=== PATIENT | female | born 1970 | race Caucasian/White ===

== ENCOUNTER 2021-03-14 16:23 | Emergency (ER) | payer BC, SELFPAY ==
[2021-03-14 16:40] VITALS: BP 115/78; PULSE 80; RESP 16; TEMP 36.5; O2SAT 97
--- NOTE | 2021-03-14 17:01 | ED.EAR ---
HPI - Ear Problem General Chief complaint: Ear Stated complaint: Lt ear pain Source: patient and RN notes reviewed Limitations: no limitations History of Present Illness HPI Narrative: The obese patient, a smoker/occasional drinker, presents with left earache. Patient states she has 1 day history of left ear discomfort before departure for vacation. No fever, URI, decreased hearing acuity, tinnitus, TMJ pain, neuralgia type pain, bruxism/teeth grinding, tooth ache [she has had her wisdom teeth pulled]. Symptoms are mild, slightly tender below the tip of the mastoid. Discussed possible causes [dental, infectious, environmental/acquired] and will treat broadly; advised to follow-up with PMD and the ENT. Related Data Home Medications Medication Instructions Recorded Confirmed phentermine 15 mg PO DAILY 03/14/21 03/14/21 sertraline 50 mg PO DAILY 03/14/21 03/14/21 Allergies Allergy/AdvReac Type Severity Reaction Status Date / Time No Known Allergies Allergy Mild Verified 03/14/21 16:59 Review of Systems Review of Systems: General/Constitutional: No weight loss,fever Eyes: N0: Redness,discharge Ears/Nose/Throat: No: Epistaxis,ear discharge Respiratory: Denies: Hemoptysis Gastrointestinal: No Vomiting, Bleeding-rectal Skin: No Lumps, eruption Neurologic: No Focal Weakness,Sz Hematologic: Denies: Petechiae/Purpura Psychiatric: No: Suicida ideationl All Other Systems: Reviewed and Negative PMFSH Social History Social History Alcohol intake: current Comments At time of signature, agree with nursing past medical, surgical, social and family history. There is no relevant family history pertinent to the presenting complaint Exam Narrative: General Appearance: Well appearing, Well nourished, No distress EYE: PERRLA , EOMI Ears: Bilateral TMs and external ear normal, Auditory canals normal Nose: Normal nose, Nares clear Mouth/Throat: Normal appearing, Normal lips Neck: Supple, No adenopathy Respiratory: Airway patent, No respiratory distress Skin: Warm, Dry Neurological: A&O x3, CN II-X intact Psychiatric: Normal mood, Normal affect Course Vital Signs Vital signs: Vital Signs Temperature 97.7 F 03/14/21 16:40 Pulse Rate 80 03/14/21 16:40 Respiratory Rate 16 03/14/21 16:40 Blood Pressure 115/78 03/14/21 16:40 Pulse Oximetry 97 08/06/21 16:40 Temperature 97.7 F 03/14/21 16:40 Pulse Rate 80 03/14/21 16:40 Respiratory Rate 16 03/14/21 16:40 Blood Pressure 115/78 03/14/21 16:40 Pulse Oximetry 97 03/14/21 16:40 Medical Decision Making Vital Signs Vital Signs: Vital Signs Temperature 97.7 F 03/14/21 16:40 Pulse Rate 80 03/14/21 16:40 Respiratory Rate 16 03/14/21 16:40 Blood Pressure 115/78 03/14/21 16:40 Pulse Oximetry 97 03/14/21 16:40 Temperature 97.7 F 03/14/21 16:40 Pulse Rate 80 03/14/21 16:40 Respiratory Rate 16 03/14/21 16:40 Blood Pressure 115/78 03/14/21 16:40 Pulse Oximetry 97 03/14/21 16:40 Discharge Plan Discharge Clinical Impression: Earache, left Patient Disposition: Home, Self-Care Condition: Stable Instructions: Swimmer's Ear (ED) Additional Instructions: May try OTC preparations like Flonase, antihistamines also Prescriptions: New ltghmyum-gyxmfqdfh-ST 3.5-10,000-1 mg/mL-unit/mL-% solution 4 drop RIGHT EAR Q8H Qty: 10 RF: 0 amoxicillin 875 mg tablet 875 mg PO Q12H Qty: 14 RF: 0 gyktdmpqbs-bayyerwfoqhql-ewok [Fioricet] 50-300-40 mg capsule 1 cap PO TID PRN (Reason: pain) Qty: 14 RF: 0 No Action phentermine 15 mg capsule 15 mg PO DAILY RF: 0 sertraline 50 mg tablet 50 mg PO DAILY RF: 0 Follow-up/Referrals: Giuliano,MD Kian [Primary Care Provider] -
== END 2021-03-14 17:12 | disposition home or self-care (01) ==
PROVIDERS: Emergency Provider Emergency Medicine; PCP Family Medicine
DX: H92.02 Otalgia, left ear (principal); F41.9 Anxiety disorder, unspecified; F32.9 Major depressive disorder, single episode, unspecified
CPT/HCPCS: 99213; G0463

== ENCOUNTER 2022-04-06 19:11 | Emergency (ER) | payer BC, SELFPAY ==
[2022-04-06 19:23] VITALS: BP 152/90; PULSE 100; RESP 18; TEMP 36.9; O2SAT 99
--- NOTE | 2022-04-06 19:23 | ED.WOUNDLAC ---
HPI - Wound/Laceration General Chief Complaint: Wound/Laceration Stated Complaint: laceration Time Seen by Provider: 04/06/22 19:30 Source: patient Mode of arrival: ambulatory Limitations: no limitations History of Present Illness HPI narrative: Ms. Wright is a 51-year-old female patient presenting to the clinic today with complaints of a left index finger laceration that occurred approximately 30 minutes prior to arrival. She reports that she was cutting up a mattress box to open it up and cut her finger with a newly used dry box operator. She reports that her tetanus shot is not up-to-date. Bleeding has slowed down but has not stopped at this time. She does have full range of motion to her PIP joint Related Data Home Medications Medication Instructions Recorded Confirmed No Home Medications 04/06/22 04/06/22 Allergies Allergy/AdvReac Type Severity Reaction Status Date / Time No Known Allergies Allergy Mild Verified 04/06/22 19:52 Review of Systems Review of Systems: Pertinent positives per HPI. Patient denies any fever, chills, rash, headache, visual changes, dizziness, cough, runny nose, sore throat, shortness of breath, chest pain, palpitations, nausea, vomiting, diarrhea, constipation, abdominal pain, or any urinary issues. PMFSH Social History Social History Alcohol intake: current Comments At the time of my signature, I reviewed and agree with the nursing past medical, surgical, social, and family history. There is no relevant family history pertinent to the patient complaint. Exam Narrative: General: Well-developed, well nourished, in no apparent distress Head: Normocephalic, atraumatic. Cardio: Regular rate and rhythm, s1 and s2 normal, no murmur appreciated. Resp: Clear to auscultation bilaterally, no rhonchi, rales, wheezing or rubs. Integumentary: [place], warm, and dry, 2-1/2 cm to the volar aspect of the PIP joint with moderate gaping. Laceration repair was performed and bleeding had stopped Course Course Emergency Course: Portions of this record may have been created with voice recognition software. Level of Care: Express Care Visit Vital Signs Vital signs: Vital Signs Temperature 36.9 C 04/06/22 19:23 Pulse Rate 100 04/06/22 19:23 Respiratory Rate 18 04/06/22 19:23 Blood Pressure 152/90 H 04/06/22 19:23 Pulse Oximetry 99 04/06/22 19:23 Oxygen Delivery Room Air 04/06/22 19:23 Temperature 36.9 C 04/06/22 19:23 Pulse Rate 100 04/06/22 19:23 Respiratory Rate 18 04/06/22 19:23 Blood Pressure 152/90 H 04/06/22 19:23 Pulse Oximetry 99 04/06/22 19:23 Oxygen Delivery Room Air 04/06/22 19:23 Vital signs reviewed Procedures Laceration Laceration 1: Date: 04/06/22 Site: hand (Second finger) Side (If applicable): left Size (cm): 2.5 Description: linear Depth: simple, single layer Local Anesthetic: lidocaine 1% Amount of anesthesia used (mL): 4 Pre-repair: wound explored and irrigated ====== Skin Level ====== Skin layer closed with: nylon Size (cm): 5-0 Number of sutures: 5 Technique: simple, interrupted ====== Subcutaneous Layer ====== ====== Muscle Layer ====== ====== Tendon Layer ====== Dressing: Verbal consent obtained for laceration repair. Risk and benefits explained and patient voiced understanding. Area was cleansed with Techni care and a 25 gauge needle was then used to instill (4) ml of 1% lidocaine without epi into the wound edges. Area was prepped and draped using sterile technique. A 5-0 suture on a p needle was used to place (5) interrupted sutures bringing the wound edges together- well approximated. Patient tolerated procedure well. Sterile dressing and finger splint applied. MDM - Wound/Laceration MDM Narrative Medical decision making narrative: At the
[2022-04-06] MEDS: TETANUS,DIPHTHERIA,AC PERTUSSIS ADULT (0.5 ML) BOOSTRIX IM (20:24)
== END 2022-04-06 20:40 | disposition home or self-care (01) ==
PROVIDERS: Emergency Provider Nurse Practitioner Family; PCP Family Medicine
DX: S61.211A Laceration without foreign body of left index finger without damage to nail, initial encounter (principal); W26.8XXA Contact with other sharp object(s), not elsewhere classified, initial encounter; Z23 Encounter for immunization
CPT/HCPCS: 12001; 90471; 90715; 99212; G0463

== ENCOUNTER 2023-03-02 17:27 | Emergency (ER) | payer BC, SELFPAY ==
[2023-03-02 17:41] VITALS: BP 147/93; PULSE 88; RESP 18; TEMP 36.2; O2SAT 97
--- NOTE | 2023-03-02 17:58 | ED.FEMALEGU ---
HPI - Female Genitourinary General Chief complaint: Urogenital-Female Stated complaint: Female Urogenital Time Seen by Provider: 03/02/23 17:45 Source: patient Mode of arrival: ambulatory Limitations: no limitations History of Present Illness HPI Narrative: Alma is a 52-year-old female patient presenting to the clinic today with complaints of possible UTI. She reports for over a week and a half to 2 weeks she has had some pressure and burning with urination. She reports she has been taking some azo capsules with cranberry. She denies any fever or chills but does feel out of sorts. No abdominal pain or back pain. Related Data Allergies Allergy/AdvReac Type Severity Reaction Status Date / Time No Known Allergies Allergy Mild Verified 04/06/22 19:52 Review of Systems Review of Systems: Pertinent positives per HPI. Patient denies any fever, chills, rash, headache, visual changes, dizziness, cough, runny nose, sore throat, shortness of breath, chest pain, palpitations, nausea, vomiting, diarrhea, constipation, abdominal pain. PMFSH Social History Social History Alcohol intake: current Comments At the time of my signature, I reviewed and agree with the nursing past medical, surgical, social, and family history. There is no relevant family history pertinent to the patient complaint. Exam Narrative: General: Well-developed, well nourished, in no apparent distress. Head: Normocephalic, atraumatic. Cardio: Regular rate and rhythm, s1 and s2 normal, no murmur appreciated. Resp: Clear to auscultation bilaterally, no rhonchi, rales, wheezing or rubs. Abdomen: Soft, pliable, bowel sounds present in all quadrants, non-tender to palpation, no organomegly, no CVAT tenderness. Course Course Emergency Course: Portions of this record may have been created with voice recognition software. Level of Care: Express Care Visit Vital Signs Vital signs: Vital Signs Temperature 36.2 C L 03/02/23 17:41 Pulse Rate 88 03/02/23 17:41 Respiratory Rate 18 03/02/23 17:41 Blood Pressure 147/93 H 03/02/23 17:41 Pulse Oximetry 97 03/02/23 17:41 Oxygen Delivery Room Air 03/02/23 17:41 Temperature 36.2 C L 03/02/23 17:41 Pulse Rate 88 03/02/23 17:41 Respiratory Rate 18 03/02/23 17:41 Blood Pressure 147/93 H 03/02/23 17:41 Pulse Oximetry 97 03/02/23 17:41 Oxygen Delivery Room Air 03/02/23 17:41 Vital signs reviewed MDM - Female Genitourinary MDM Narrative Medical decision making narrative: At the time of visit patient is resting comfortably on the exam table. Patient has taken azo so this has skewed her UA dip. Will send in prescription for Bactrim and send urine for culture. Supportive measures were discussed with the patient she voiced understanding discharge instructions agrees to treatment plan. Differential Diagnosis Differential diagnosis: Likely urinary tract infection, cystitis and other (Pyelonephritis) Discharge Plan Discharge Clinical Impression: Urinary tract infection Patient Disposition: Home, Self-Care Condition: Stable Instructions: Antibiotic Form, Urinary Tract Infection in Women (ED) Additional Instructions: UA dip will be sent for culture. Take Bactrim as prescribed Increase fluids and stay well hydrated Wipe front to back. May use wet wipes. Avoid tub baths If sexually active- pee before and after intercourse. Wear cotton panties Avoid tight clothing up against the genitals Follow up with your PCP in 1 week if symptoms persist. Prescriptions: New sulfamethoxazole-trimethoprim [Bactrim DS] 800-160 mg tablet 1 tablet PO Q12H 7 Days Qty: 14 0RF Follow-up/Referrals: PHYSICIAN,[employer] [Primary Care Provider] - Time of Disposition: 18:00 Quality NIHSS Nursing Documentation ED NIHSS nursing documentation: reviewed/agree
== END 2023-03-02 18:12 | disposition home or self-care (01) ==
PROVIDERS: Emergency Provider Nurse Practitioner Family
DX: N39.0 Urinary tract infection, site not specified (principal)
CPT/HCPCS: 81003; 87086; 87088; 99213; G0463

== ENCOUNTER 2023-12-24 17:12 | Emergency (ER) | payer BC, SELFPAY ==
--- NOTE | 2023-12-24 17:13 | ED.FEMALEGU ---
HPI - Female Genitourinary General Chief complaint: Urogenital-Female Stated complaint: Poss UTI Time Seen by Provider: 12/24/23 17:13 Source: patient Mode of arrival: ambulatory Limitations: no limitations History of Present Illness HPI Narrative: Alma is a 53-year-old female patient presenting to the clinic today with complaints of possible urinary tract infection. She reports last night she developed urinary frequency, urgency, and pressure in her bladder. States she had to get up multiple times throughout the night to try to your void and had a low urine output. Denies any fever, chills, back pain, or abdominal pain. Related Data Allergies Allergy/AdvReac Type Severity Reaction Status Date / Time No Known Allergies Allergy Mild Verified 12/24/23 17:14 Review of Systems Review of Systems: Pertinent positives per HPI. Patient denies any fever, chills, rash, headache, visual changes, dizziness, cough, runny nose, sore throat, shortness of breath, chest pain, palpitations, nausea, vomiting, diarrhea, constipation, abdominal pain. [facility] Social History Social History Alcohol intake: current Comments At the time of my signature, I reviewed and agree with the nursing past medical, surgical, social, and family history. There is no relevant family history pertinent to the patient complaint. Exam Narrative: General: Well-developed, morbidly obese, in no apparent distress. Head: Normocephalic, atraumatic. Cardio: Regular rate and rhythm, s1 and s2 normal, no murmur appreciated. Resp: Clear to auscultation bilaterally, no rhonchi, rales, wheezing or rubs. Abdomen: Soft, pliable, bowel sounds present in all quadrants, non-tender to palpation, no organomegly, no CVAT tenderness. Course Course Emergency Course: Portions of this record may have been created with voice recognition software. Level of Care: Express Care Visit Vital Signs Vital signs: Vital Signs Temperature 36.1 C L 12/24/23 17:21 Pulse Rate 100 12/24/23 17:21 Respiratory Rate 18 12/24/23 17:21 Blood Pressure 141/89 H 12/24/23 17:21 Pulse Oximetry 99 12/24/23 17:21 Oxygen Delivery Room Air 05/17/24 17:21 Temperature 36.1 C L 12/24/23 17:21 Pulse Rate 100 12/24/23 17:21 Respiratory Rate 18 12/24/23 17:21 Blood Pressure 141/89 H 12/24/23 17:21 Pulse Oximetry 99 12/24/23 17:21 Oxygen Delivery Room Air 12/24/23 17:21 Vital signs reviewed MDM - Female Genitourinary MDM Narrative Medical decision making narrative: At the time of visit patient is resting comfortably on the exam table. Patient appears to be nontoxic. Labs: Urine positive 1+ leukocyte, 1+ blood, and will +protein. Specific gravity is greater than 1.030. We will send urine for culture Plan: I suspect patient has urinary tract infection. Prescription for Bactrim was sent to the pharmacy. Supportive measures were discussed with the patient and they voiced understanding discharge instructions and agrees to treatment plan. Return precautions reviewed Differential Diagnosis Differential diagnosis: Likely urinary tract infection and cystitis Lab Data Labs: Urine Glucose Negative Reference Range: Negative Urine Bilirubin Negative Reference Range: Negative Urine Ketone Negative Reference Range: Negative Urine Specific [place] 1.030 Reference Range:1.001-1.035 Urine Blood 1+ Reference Range: Negative * * Urine pH 6.0 Reference Ran
[2023-12-24 17:21] VITALS: BP 141/89; PULSE 100; RESP 18; TEMP 36.1; O2SAT 99
== END 2023-12-24 17:35 | disposition home or self-care (01) ==
PROVIDERS: Emergency Provider Nurse Practitioner Family
DX: N30.01 Acute cystitis with hematuria (principal); Z86.16 Personal history of COVID-19
CPT/HCPCS: 81003; 87086; 87088; 99213; G0463

== ENCOUNTER 2025-04-12 09:49 | Emergency (ER) | payer SELFPAY ==
[2025-04-12 10:00] VITALS: BP 132/109; PULSE 84; RESP 18; TEMP 36.8; O2SAT 98
[2025-04-12 10:14] VITALS: BP 138/84; PULSE 82
--- NOTE | 2025-04-12 10:14 | ED_ITS ---
HPI - URI/Sore Throat General Chief Complaint: Headache Stated Complaint: pressure in head Time Seen by Provider: 04/12/25 10:10 Source: patient Mode of arrival: ambulatory Limitations: no limitations History of Present Illness HPI Narrative: Alma is a 54-year-old female patient presenting to the clinic today with complaints of sinus congestion, sinus pressure, headache, body aches, fever, productive cough, and left ear pain times 10 days. She reports bringing up some yellow phlegm and blowing out yellow nasal drainage. Has pain and pressure over the maxillary sinuses and behind her eyes. Has been taking ibuprofen, Sudafed, TheraFlu, and NyQuil for her symptoms. Related Data Allergies Allergy/AdvReac Type Severity Reaction Status Date / Time No Known Allergies Allergy Mild Verified 04/12/25 10:08 Review of Systems Review of Systems: Pertinent positives per HPI. Patient denies any rash,visual changes, dizziness, sore throat, shortness of breath, chest pain, palpitations, nausea, vomiting, diarrhea, constipation, abdominal pain, or any urinary issues. [facility] Social History Social History Alcohol intake: current Comments At the time of my signature, I reviewed and agree with the nursing past medical, surgical, social, and family history. There is no relevant family history pertinent to the patient complaint. Exam Narrative: General: Well-developed, morbidly obese, in no apparent distress Head: Normocephalic, atraumatic Eyes: Pupils equally round and reactive to light bilaterally, EOM intact, sclera and conjunctive clear, no discharge, lids normal Ears: Right TMs intact and congested, left TM intact, bulging, fluid noted behind the TM, tenderness to palpation over the left eustachian tube, ear canals clear, no drainage, grossly hearing normal. Nose: Nares patent, yellow nasal discharge, moderate inflammation, maxillary sinus tenderness. Mouth: Oropharynx red without lesions or masses, good dentition, MMM. Postnasal drip Neck: Supple, trachea midline, no enlargement of anterior or posterior cervical nodes, no thyroid masses or goiter palpable. Cardio: Regular rate and rhythm, s1 and s2 normal, no murmur appreciated. Resp: Clear to auscultation bilaterally anteriorly and posteriorly, no rhonchi, rales, wheezing or rubs Course Course Emergency Course: Portions of this record may have been created with voice recognition software. Level of Care: Express Care Visit Vital Signs Vital signs: Vital Signs Temperature 36.8 C 04/12/25 10:00 Pulse Rate 84 04/12/25 10:00 Respiratory Rate 18 04/12/25 10:00 Blood Pressure 132/109 H 04/12/25 10:00 Pulse Oximetry 98 04/12/25 10:00 Oxygen Delivery Room Air 04/12/25 10:00 Temperature 36.8 C 04/12/25 10:00 Pulse Rate 82 04/12/25 10:14 Respiratory Rate 18 04/12/25 10:00 Blood Pressure 138/84 04/12/25 10:14 Pulse Oximetry 98 04/12/25 10:00 Oxygen Delivery Room Air 04/12/25 10:00 Vital signs reviewed MDM - URI/Sore Throat MDM Narrative Medical decision making narrative: At the time of visit patient is resting comfortably on the exam table. Patient appears to be nontoxic. Complaints of sinus congestion, sinus pressure, headache, body aches, fever, productive cough, and left ear pain times 10 days. She reports bringing up some yellow phlegm and blowing out yellow nasal drainage. Has pain and pressure over the maxillary sinuses and behind her eyes. Has been taking ibuprofen, Sudafed, TheraFlu, and NyQuil for her symptoms. On exam she has yellow nasal drainage, moderate inflammation over the nasal turbinates, maxillary sinus pressure and pressure behind her eyes, fluid behind the left TM, tenderness to palpation over the left eustachian tube. Plan: I suspect patient has acute bacterial rhinosinusitis, left eustachian tube dysfunction with serous otitis. Prescription for Augmentin and prednisone was sent to the pharmacy. Work note was given. Supportive measures were discussed with the patient and they voiced understanding discharge instructions and agrees to treatment plan. Return precautions reviewed Differential Diagnosis Differential diagnosis: Likely upper respiratory infection, otitis media, sinusitis, viral infection, bronchitis, influenza, pharyngitis and other (COVID) Discharge Plan Discharge Clinical Impression: Acute bacterial sinusitis Acute serous otitis media Qualifiers: Laterality: left Recurrence: non-recurrent Qualified Code(s): H65.02 - Acute serous otitis media, left ear Eustachian tube dysfunction Qualifiers: Laterality: left Qualified Code(s): H69.92 - Unspecified Eustachian tube disorder, left ear Patient Disposition: Home Condition: Stable Instructions: Antibiotic Form, Rhinosinusitis (ED), Fluid In The Ear (Serous Otitis Media) (ED) Additional Instructions: Take prescription medications only as prescribed-Augmentin and prednisone Increase fluids and stay well hydrated May take Tylenol or motrin as directed on bottle for pain/fever May use Flonase 1 spray in each nare daily May take OTC antihistamines such as Zyrtec or Claritin daily as directed on bottle May apply Vicks vapor rub to chest to open sinuses Sinus rinses for congestion Cepacol spray, cough drops, throat lozenges, warm tea with honey/lemon, gargle salt water to soothe throat BRAT diet for diarrhea Clear liquids x 24 hours then advance as tolerated for nausea/vomiting Go to the ED if you develop a worsening in your condition- high fever not controlled by Tylenol or Motrin, dehydration, weakness, lethargy, shortness of breath, or chest pain. Follow up with your PCP in 3-5 days if symptoms persist. Patient Language: Turk[place] Prescriptions: New prednisone 20 mg tablet 40 mg PO DAILY 5 Days Qty: 10 0RF amoxicillin-pot clavulanate 875-125 mg tablet 1 tablet PO Q12H 10 Days Qty: 20 0RF Follow-up/Referrals: PHYSICIAN,QUARRY PLUG AND FEATHER DRILLER [Primary Care Provider, Internal Medicine] Stand Alone Forms: Work/School Release IP Time of Disposition: 10:16 Quality NIHSS Nursing Documentation ED NIHSS nursing documentation: reviewed/agree
--- OUTSIDE RECORDS SUMMARY | 2025-04-12 10:15 | XMS_ITS | Clinical Summary ---
Author Organization [facility] Address [address] [place] [address] Care Team Providers Care Travel Attendants Name Role Phone Lawanda Tobin MD Primary Care Provider Source Comments [facility],non-owned Affiliates and Associated Physician Practices is amultiple site organization consisting of ambulatory clinics and hospital sitesin [place], [place], [place] and [place]. This disclosure is being madepursuant to the Care Everywhere program and may not contain all information available regarding this patient. Last updated 18.[facility] Allergies No known active allergies Medications * Be aware that medications may not be up to date on this document. Alwaysverify current medications with the patient. sertraline (ZOLOFT) 50 MG tablet TK 1 T PO QD 1 03/11/2019 Active prednisoLONE acetate (PRED FORTE) 1 % ophthalmic suspension INSTILL 1 DROP INTO THE LEFT EYE Q HOUR WHILE AWAKE 4 03/11/2019 Active Immunizations Immunization Administration Dates Next Due MMR 03/26/2019 Family History Medical History Relation Name Comments Asthma Brother Migraine Brother Congenital Heart defect Father Cancer - Breast Mother Migraine Mother Relation Name Status Comments Brother Father Mother Social History Tobacco Use Types Packs/Day Years Used Date Smoking Tobacco: Every Day Cigarettes Smokeless Tobacco: Never Tobacco Cessation:Ready to Q uit: Yes Alcohol Use Standard Drinks/Week Comments Yes 0 (1 standard drink = 0.6 oz pur e alcohol) AUDIT-C Answer Date Recorded Frequency of Alcohol Consumption 2-4 times a mon th 03/24/2019 Average Number of Drinks 5 or 6 019 Frequency of Binge Drinking Not on file 03/09 Comments No Sex and Gender Information Value Date Recorded Sex Assigned at Not on file Legal Sex Female 1:54 PM CDT Gender Identity Not on file Sexual Orientation Not on file Last Filed Vital Signs Vital Sign Reading Time Taken Comments Blood Pressure 126/80 03/24/2019 10:01 AM CDT Pulse 74 03/24/2019 10:01 AM CDT Temperature 37.4 C (99.4 F) 03/24/2019 10:01 AM CDT Respiratory Rate 16 03/24/2019 10:0 1 AM CDT Oxygen Saturation 99% 03/24/2019 10: 01 AM CDT Inhaled Oxygen Concentration - - Weight 123.5 kg (272 lb 3.2 oz) 019 10:01 AM CDT Height 171.5 cm (5' 7.5) 03/24/2019 10 :01 AM CDT Body Mass Index 42 03/24/2019 10:01 AM CDT Plan of Treatment Health Maintenance Due Date Last Done Comments COLOGUARD (AGES 45-75) - COL ON CA SCREENING 1969 COLON MONITORING 1969 COLONOSCOPY - COLON CA SCREENING 1969 CT COLONOGRAPHY - COLON CA SCREENING 1969 Colorectal Cancer Screening 1969 FIT - COLON CA SCREENING 1969 FLEX SIG - COLON CA SCREENING 1969 LIPID TESTING 1969 MAMMOGRAM 1969 HIV SCREENING 1984 HEPATITIS C SCREENING 05/11/1987 DTAP/TDAP/TD VACCINES (1 - Tdap) 1988 HEPATITIS B VACCINE (1 of 3 - 19+ 3-dose series) 1988 PNEUMOCOCCAL VACCINE 50+ (1 of 2 - PCV) 1988 SCREENING FOR DIABETES 03/24/2019 ZOSTER VACCINE (1 of 2) 2019 COVID-19 VACCINE (1 - 2023-2 5 season) 2024 DEPRESSION SCREENING 08/09/2024 INFLUENZA VACCINE (#1) 2025 HIB VACCINE Aged Out No longer eligi ble based on patient's age to complete this topic HPV VACCINE Aged Out No longer eligi ble based on patient's age to complete this topic MENINGOCOCCAL (Group B) VACC INE SHARED DECISION-MAKING Aged Out No longer eligibl e based on patient's age to complete this topic MENINGOCOCCAL GROUPS A/C/Y/W VACCINE Aged Out No longer eligible b ased on patient's age to complete this topic Care Teams Travel Attendants Relationship Specialty Start Date End Date Lawanda Tobin MD [address] [place] [phone] PCP - General Family Medicine 03/24/19
== END 2025-04-12 10:20 | disposition home or self-care (01) ==
PROVIDERS: Emergency Provider Nurse Practitioner Family
DX: J01.90 Acute sinusitis, unspecified (principal); B96.89 Other specified bacterial agents as the cause of diseases classified elsewhere; H65.02 Acute serous otitis media, left ear; H69.92 Unspecified Eustachian tube disorder, left ear
CPT/HCPCS: 99213; G0463